=== PATIENT | female | born 1975 | race Caucasian/White ===

== ENCOUNTER 2018-02-19 02:47 | Emergency (ER) | payer MEDICAID ==
[~2018-02-19 02:47] MED LIST: CIPRO250 MG PO; ECOTRIN81 MG PO; FLA250 PO; LAC PO; MIRUD PO; NORCO1 TA2 PO; ZOCOR10 MG PO; ZOF4 PO
[2018-02-19 04:21] VITALS: BP 126/86
== END 2018-02-19 04:21 | disposition home or self-care (01) ==
LOC: ED 02:47
DX: J44.9 Chronic obstructive pulmonary disease, unspecified (principal); J45.909 Unspecified asthma, uncomplicated